=== PATIENT | female | born 1975 | race Caucasian/White ===

== ENCOUNTER 2017-05-24 19:42 | Emergency (ER) | payer MEDICAID ==
[~2017-05-24] VITALS: Ht 172.7 cm; Wt 108.9 kg
[~2017-05-24 19:42] MED LIST: ALPR1TAB10; CARI-277; HYDR-1421; HYDR5CAP; OXYC30TA50; ZOLP10TA
[2017-05-24 20:48] LABS: Urine Bacteria NONE SEEN /hpf (None Seen); Urine Blood TRACE /uL (Negative); Urine Specific Gravity 1.022 (1.001-1.035); Urine WBC 11 /hpf (0 - 5)
[2017-05-24 20:59] LABS: Basophils # (auto) 0.1 uL; Basophils % (auto) 0.6 % (0.0-2.0); Eosinophils # (auto) 0.1 uL; Eosinophils % (auto) 0.5 % (0.0-7.0); Hematocrit 42.8 % (36.0-46.0); Hemoglobin 14.2 g/dL (12.2-16.2); Lymphocytes # (auto) 2.9 uL; Lymphocytes % (auto) 22.3 % (10.0-50.0); Mean Corpuscular Hemoglobin 31.2 pg (28.0-32.0); Mean Corpuscular Hgb Conc. 33.1 g/dL (32.0-36.0); Mean Corpuscular Volume 94.4 fL (80.0-100.0); Monocytes % (auto) 7.4 % (0.0-12.0); Neutrophils # (auto) 9.1 uL; Neutrophils % (auto) 69.2 % (37.0-80.0); Nucleated Red Blood Cells % 0.1 %; Platelet Count (auto) 376 10^3/uL (140-450); Red Blood Cells 4.53 10^6/uL (4.0-5.20); Red Cell Distribution Width 13.3 % (11.8-14.3); White Blood Cell 13.2 10^3/uL (4.4-10.8)
[2017-05-24 21:13] LABS: Albumin 3.9 g/dL (3.4-5.0); BUN/Creatinine Ratio 20.9; Bilirubin, Total 0.5 mg/dL (0.2-1.0); Calcium 8.6 mg/dL (8.5-10.1); Potassium 3.6 mmol/L (3.5-5.1); Total Protein 7.5 g/dL (6.4-8.2)
[2017-05-25] MEDS ORDERED: ONDANSETRON ODT 4 MG TAB PO ONE (01:00)
[2017-05-25 02:55] VITALS: BP 132/78
== END 2017-05-25 02:56 | disposition home or self-care (01) ==
LOC: ER 19:42
DX: N83.202 Unspecified ovarian cyst, left side (principal); M19.90 Unspecified osteoarthritis, unspecified site; G89.4 Chronic pain syndrome; I10 Essential (primary) hypertension; F17.210 Nicotine dependence, cigarettes, uncomplicated; Z87.442 Personal history of urinary calculi; Z79.899 Other long term (current) drug therapy
CPT/HCPCS: 36415; 76830; 76856; 80053; 81001; 84702; 85025; 99285; Q0162

== ENCOUNTER 2017-06-13 21:59 | Emergency (ER) | payer MEDICAID ==
[~2017-06-13] VITALS: Ht 172.7 cm; Wt 104.3 kg
[2017-06-14 02:44] VITALS: BP 137/81
[2017-06-14] MEDS ORDERED: KETOROLAC TROMETH 60MG/2ML VIAL IM ONE (03:30)
[2017-06-14] MEDS ORDERED: LIDOCAINE 2%HCL (LOCAL ANESTH.) INJ 20ML MDV IJ ONE (03:30)
[2017-06-14] MEDS ORDERED: HYDROcodone-ACET 10/325MG TAB PO ONE (04:00)
== END 2017-06-14 04:13 | disposition home or self-care (01) ==
LOC: ER 21:59
DX: H66.42 Suppurative otitis media, unspecified, left ear (principal); I10 Essential (primary) hypertension; M19.90 Unspecified osteoarthritis, unspecified site; F17.210 Nicotine dependence, cigarettes, uncomplicated; F10.10 Alcohol abuse, uncomplicated; F12.10 Cannabis abuse, uncomplicated
CPT/HCPCS: 96372; 99283; J1885